=== PATIENT | female | born 1955 | race Hispanic/Latino ===

== ENCOUNTER → 2023-01-11 | Outpatient (CLI) | payer OTHER | END | disposition home or self-care (01) | LOC: RAH 12:59 | PROVIDERS: ATTEND Nurse Practitioner Family | DX: M47.813 Spondylosis without myelopathy or radiculopathy, cervicothoracic region (principal); M48.03 Spinal stenosis, cervicothoracic region; M50.23 Other cervical disc displacement, cervicothoracic region; M50.223 Other cervical disc displacement at C6-C7 level; G56.92 Unspecified mononeuropathy of left upper limb | CPT/HCPCS: 72141 ==